=== PATIENT | female | born 1975 | race Caucasian/White ===

== ENCOUNTER 2016-12-02 06:09 | Day surgery (SDC) | payer BC ==
[2016-11-29 09:37] VITALS: BMI 29.7
[2016-12-02] MEDS ORDERED: ceFAZolin SODIUM 1 GM VIAL ONE ×4 (07:31→10:50)
[2016-12-02] MEDS ORDERED: EPINEPHrine 1:1,000 1 MG/1 ML - 30ML VIAL (INJECTION) ONE (07:31)
[2016-12-02] MEDS ORDERED: GENTAMICIN SO4 80 MG/2 ML VIAL ONE ×3 (07:31→10:50)
[2016-12-02] MEDS ORDERED: BACITRACIN 15 GM TUBE TOPICAL OINTMENT ONE (07:31)
[2016-12-02] MEDS ORDERED: MIDAZOLAM HCL 2 MG/2 ML SINGLE DOSE VIAL ONE (07:37)
[2016-12-02] MEDS ORDERED: LIDOCAINE 1% P/F 10 MG/ML VIAL ONE (07:37)
[2016-12-02] MEDS ORDERED: DEXAMETHASONE SOD PHOSPHATE 4 MG/1 ML VIAL ONE (08:02)
[2016-12-02] MEDS ORDERED: PROPOFOL 20 ML ONE ×3 (08:02→13:15)
[2016-12-02] MEDS ORDERED: ROCURONIUM BROMIDE 50 MG/5 ML VIAL ONE (08:02)
[2016-12-02] MEDS ORDERED: ONDANSETRON 4 MG/2 ML VIAL ONE (08:02)
[2016-12-02] MEDS ORDERED: LIDOCAINE HCL/PF 2% SDV 5ML VIAL ONE (08:02)
[2016-12-02] MEDS ORDERED: LIDOCAINE HCL 1%, 10 MG/ML (20ML VIAL) ONE (08:08)
[2016-12-02] MEDS ORDERED: ONDANSETRON 4 MG/2 ML VIAL IVPUSH PRN (08:08)
[2016-12-02] MEDS ORDERED: oxyCODONE HCL 5 MG TABLET PO PRN ×2 (08:08)
[2016-12-02] MEDS ORDERED: PROMETHAZINE HCL 25 MG/1 ML VIAL IVPUSH PRN (08:08)
[2016-12-02] MEDS ORDERED: LACTATED RINGERS SOLUTION 1,000 ML IV SCH (08:15)
[2016-12-02] MEDS ORDERED: HEPARIN NA (PORCINE) 5,000 UNITS/ML 1ML VIAL ONE (08:17)
[2016-12-02] MEDS ORDERED: LIDOCAINE 1%-EPI 1:100,000 30 ML MDV IJ ONE (09:09)
[2016-12-02] MEDS ORDERED: ePHEDrine SULFATE 50 MG/1 ML AMPULE ONE ×2 (09:22→13:26)
[2016-12-02] MEDS ORDERED: BUPIVACAINE HCL/PF 2.5 MG/ML - 30 ML VIAL IJ ONE (09:48)
[2016-12-02] MEDS ORDERED: DESFLURANE GAS 240 ML BOTTLE IH ONE (13:41)
[2016-12-02] MEDS ORDERED: BUPIVACAINE HCL/PF 0.25% (2.5MG/ML) 10 ML VIAL IJ ONE (14:16)
[2016-12-02] MEDS ORDERED: HYDROmorphone HCL/PF 1 MG/ML VIAL (FOR PYXIS CHARGING ONLY) ONE (14:22)
[2016-12-02] MEDS ORDERED: PROMETHAZINE HCL 25 MG/1 ML VIAL ONE (15:50)
--- NOTE | 2016-12-02 17:11 | SURG ---
Surgery Systems Qa Analyst Note Systems Qa Analyst: Dalila Ely PA-C Date of Service: 12/02/16 Diagnosis: breast cancer, breast asymmetry Procedure: bilateral breast reconstruction, bilateral breast implant I was present for the case for the breast reconstruction from 9:30 until 1300. For further detail, please refer to operative report. Visit type - Case Type Case Type: Scheduled Admission - Emergency Emergency Visit: No - New patient This patient is new to me today: Yes Date on this admission: 12/02/16 - Critical Care Critical Care patient: No
[2016-12-02 18:58] VITALS: BP 126/72; PULSE 80; TEMP 97.8
--- NOTE | 2016-12-08 16:46 | PATH ---
Surgical Pathology Report Patient Name: ELVIS LOWE [facility]. Rec. #: [id number] /Age/Gender: 1975 (Age: 41) / F Account: [id number] Location: [facility] AMBULATORY Taken: 12/02/2016 Received: 12/02/2016 Reported: 12/08/2016 Physicians: Carlee Santana M.D. Specimen(s) Received A: LEFT BREAST SKIN AND SCAR B: RIGHT BREAST SKIN AND SCAR Clinical History History of breast cancer, breast asymmetry Final Diagnosis A. SKIN AND SCAR, LEFT BREAST, REVISION: SKIN WITH SCAR. B. SKIN AND SCAR, RIGHT BREAST, REVISION: SKIN WITH SCAR. Electronically Signed Alexandra Richmond M.D. Gross Description A. Received in formalin labeled "left breast skin and scar," is a 5.5 x 3.0 x 0.6 cm aggregate of multiple cody, irregular, unoriented portions of skin with minimal underlying soft tissue. Box Chipper sections are submitted in one cassette. B. Received in formalin labeled "right breast skin and scar," is a 7.5 x 4.5 x 0.8 cm aggregate of multiple cody, irregular, unoriented portions of skin with minimal underlying soft tissue. Box Chipper sections are submitted in one cassette. 12/06/201612/06/2016
--- NOTE | 2017-02-03 11:10 | OP ---
DATE OF OPERATION: 12/02/2016 PREOPERATIVE DIAGNOSIS: Status post bilateral mastectomies with autologous tissue reconstruction with asymmetry and deflated appearance per patient. POSTOPERATIVE DIAGNOSIS: Status post bilateral mastectomies with autologous tissue reconstruction with asymmetry and deflated appearance per patient. PROCEDURE: 1. Bilateral superomedial fat grafting from inner thigh and abdominal donor sites. 2. Revision bilateral reconstructive breasts with skin excision to remove as much pigmented areolar tissue as possible, placement of bilateral breast silicone implants under the flaps, possible placement of acellular dermal matrix. SURGEON: Mateo Santana MD MYSQL DBA: Dalila Ely PA-C ANESTHESIA: General endotracheal anesthesia. SPECIMENS: 1. Left breast skin and scar. 2. Right breast skin and scar. INDICATIONS FOR PROCEDURE: The patient is status post bilateral MAMIE (deep inferior epigastric artery plow and boring machine tender) flaps for her breasts at [facility]. Patient is unhappy with the size and shape of her breasts and states they are deflated and asymmetric. She presents today for breast reconstruction. Consent was obtained. Surgical procedure was reviewed including the risks as well as the recovery period. Alternative of no surgery was discussed with the patient. Risks included, but were not limited to: Infection, bleeding, scarring, need for further surgery, implant failure, implant rupture, pain, flap loss, flap ischemia, persistent asymmetry, blood clot in her leg going to her lung. All her questions were answered, and she agreed to proceed. DESCRIPTION OF PROCEDURE: Patient was taken to the operating room, placed supine on the operating room table. Time-out procedure was performed. Anesthesia induced general endotracheal anesthesia. Prophylactic intravenous antibiotics were provided. TEDs and sequential compression devices were placed on her bilateral lower extremities for deep venous thrombosis prophylaxis. The areas were prepped and draped in the standard sterile manner. Patient had skin grafts over the previous areola, which had failed at the reconstruction of her outside procedure with need of pigmented areola. She had a vertical scar on the left side and none on the right side. Vertical scar on the left was entered. Flap was viable, pedicle was maintained. Flap was raised to create an implant pocket. Similar procedure was performed on the right side with the flap raised to create the implant pocket. Sizers were used and implant size was chosen. No acellular dermal matrix was needed for suspension at this time, this since the tissues appeared firm. Gloves were changed. Utilizing no-touch technique with a Carreon Funnel, breast implants were placed. These were 485 mL cohesive silicone breast implants. These fit the pocket nicely. Wounds were copiously irrigated with Ancef, gentamicin, Bacitracin, triple antibiotic irrigation. Care was taken to maintain the pedicles bilaterally. Flaps appeared to be warm and well perfused bilaterally. Vertical incisions were subsequently closed with 2-0 Vicryl buried sutures. The remaining areolar tissue around the circular skin grafts bilaterally were excised using No. 15 blade and sutured with interrupted intradermal buried 3-0 Monocryl and running 4-0 Monocryl in a subcuticular manner. The remainder of the wounds were closed in this fashion, and patient was sat up to assess for symmetry and had good symmetry. No drain was placed. No dermal matrix was determined to be needed at this time. After wound closure, attention was then turned to the inner thighs, flank, and abdomen for fat graft harvesting. Tumescent was infiltrated through liposuction sites made with No. 15 blade, and the fat was harvested using the Cryptonator fat graft equipment. Fat was washed. Superomedial fat was injected bilaterally with 47 mL of fat injected on the left and 42 mL of fat injected on the right through injection sites created with a No. 15 blade using the fat injection cannula. This provided good symmetry. Fat injection sites were sutured with simple interrupted 5-0 nylon sutures. Dermabond was applied to all wounds with gauze, ABD pads and a surgical bra. Liposuction sites were closed with simple interrupted 5-0 nylon sutures covered with Bacitracin, Telfa, and a small Tegaderm. Counts were correct at the end of the case, and patient was extubated and taken to the recovery room in stable condition postoperatively. MATEO SANTANA M.D. [id number]
--- NOTE | 2017-02-06 11:25 | OP ---
DATE OF OPERATION: 12/02/2016 ADDENDUM Please note that for the procedure, 1500 mL of tumescent was infiltrated in the abdomen, flanks, and inner thighs, and 300 mL of fat was processed with the Revolve and 89 mL of fat were injected into the bilateral superomedial breast. MATEO RIVER M.D. [id number]
== END 2016-12-02 17:25 | disposition home or self-care (01) ==
LOC: FASU 06:09
PROVIDERS: ATTEND Surgery
PROC: 0HRX07Z Replacement of Left Nipple with Autologous Tissue Substitute, Open Approach (ICD-10-PCS; 2016-12-02)
PROC: 0HRW07Z Replacement of Right Nipple with Autologous Tissue Substitute, Open Approach (ICD-10-PCS; 2016-12-02)
PROC: 0HRV07Z Replacement of Bilateral Breast with Autologous Tissue Substitute, Open Approach (ICD-10-PCS; principal; 2016-12-02 09:12)
PROC: 0HUV0JZ Supplement Bilateral Breast with Synthetic Substitute, Open Approach (ICD-10-PCS; 2016-12-02 09:12)
DX: Z90.13 Acquired absence of bilateral breasts and nipples (principal); N65.1 Disproportion of reconstructed breast; T85.613A Breakdown (mechanical) of artificial skin graft and decellularized allodermis, initial encounter; Y83.4 Other reconstructive surgery as the cause of abnormal reaction of the patient, or of later complication, without mention of misadventure at the time of the procedure; Y92.9 Unspecified place or not applicable; L90.5 Scar conditions and fibrosis of skin
CPT/HCPCS: 88302-TC; 94760; J1644

== ENCOUNTER 2016-12-13 11:39 | Day surgery (SDC) | payer BC ==
--- NOTE | 2016-12-13 12:56 | PDOC ---
History of Present Illness - General Chief Complaint: Wound Infection Stated Complaint: WOUND INFECTION Time Seen by Provider: 12/13/16 11:41 History Source: Patient, Significant Other Exam Limitations: No Limitations - History of Present Illness Initial Comments: 12/13/16 12:46 CHIEF COMPLAINT: Drainage from the right breast wound HISTORY OF PRESENT ILLNESS: The status post recent revision of her right breast. She has a history of prior breast cancer with surgery and recently underwent the breast revision procedure by Dr. Clark, plastic surgeon. Today she was sent to the emergency department by her plastic surgeon for progression of the drainage and pain from the right breast wound. REVIEW OF SYSTEMS: no fever, no chills positive right breast pain positive drainage from the wound Past History - Past Medical History Allergies/Adverse Reactions: Allergies Allergy/AdvReac Type Severity Reaction Status Date / Time latex Allergy Hives Verified 12/13/16 11:46 codeine AdvReac Vomiting Verified 12/13/16 11:46 Home Medications: Ambulatory Orders Alprazolam [Xanax] 1 mg PO QID PRN 11/29/16 Lamotrigine [Lamictal] 200 mg PO DAILY 11/29/16 Omeprazole 40 mg PO DAILY 11/29/16 Paroxetine HCl [Paxil] 20 mg PO HS 11/29/16 Clindamycin [Cleocin -] 300 mg PO TID 12/13/16 Doxycycline Hyclate 100 mg PO BID 12/13/16 Anemia: No Asthma: No Cancer: Yes (2012 Right Breast) Cardiac Disorders: No CVA: No COPD: No CHF: No Dementia: No Diabetes: No GI Disorders: No Disorders: No HTN: No Hypercholesterolemia: No Liver Disease: No Seizures: Yes (last seizure 10 yrs ago) Thyroid Disease: No - Surgical History Abdominal Surgery: No Appendectomy: No Cardiac Surgery: No Cholecystectomy: No Lung Surgery: No Neurologic Surgery: No Orthopedic Surgery: No Other Surgical History: 12/13/16 12:58 breast surgery - Psycho/Social/Smoking Cessation Hx Anxiety: Yes Suicidal Ideation: No Smoking History: Never smoked Have you smoked in the past 12 months: No Information on smoking cessation initiated: No Hx Alcohol Use: No Drug/Substance Use Hx: No Substance Use Type: None Hx Substance Use Treatment: No *Physical Exam - Vital Signs Last Vital Signs Temp Pulse Resp BP Pulse Ox 98.6 F 68 20 97/67 99 12/13/16 11:40 12/13/16 11:40 12/13/16 11:40 12/13/16 11:40 12/13/16 11:40 - Physical Exam Comments: 12/13/16 12:58 GENERAL: The patient is awake, alert, and fully oriented, in no acute distress. HEAD: Normal with no signs of trauma. EYES: Pupils equal, round and reactive to light, extraocular movements intact, sclera anicteric, conjunctiva clear. BREASTS: R breast with open wound inferior at 6 o'clock, small white discharge EXTREMITIES: Normal range of motion, no edema. NEUROLOGICAL: Normal speech, normal gait. PSYCH: Normal mood, normal affect. SKIN: Warm, Dry, normal turgor. Medical Decision Making - Medical Decision Making 12/13/16 13:05 Patient is a 41-year-old woman status post right breast revision with a prior history of breast cancer surgery. She comes in now with ongoing drainage and pain from the right breast. She will be going to the OR for debridement and wound care. CBC and chemistry panel sent. Wound culture sent. Patient took her clindamycin at 8:30 am this morning. Next dose to be given IV at 2:30 pm. *DC/Admit/Observation/Transfer Diagnosis at time of Disposition: Breast wound Qualifiers: Encounter type: initial encounter Laterality: right Qualified Code(s): S21.001A - Unspecified open wound of right breast, initial encounter - Discharge Dispostion Condition at time of disposition: Stable Admit: Yes Decision to Admit order Date/Time: 12/13/16 13:07 admitted to OR by Dr. Clark.
[2016-12-13] MEDS ORDERED: ceFAZolin SODIUM 1 GM VIAL ONE (13:05)
[2016-12-13] MEDS ORDERED: GENTAMICIN SO4 80 MG/2 ML VIAL ONE (13:05)
[2016-12-13] MEDS ORDERED: BACITRACIN 15 GM TUBE TOPICAL OINTMENT ONE (13:06)
[2016-12-13] MEDS ORDERED: LIDOCAINE 1%-EPI 1:100,000 30 ML MDV IJ ONE (13:06)
[2016-12-13 13:19] LABS: ALBUMIN 3.3 g/dl (3.5-5.0); ALK PHOS 84 U/L (32-92); ANION GAP 6 (8-16); BILIRUBIN,TOTAL 1.4 mg/dl (0.2-1.0); CO2 27 mmol/L (22-28); CREATININE 0.6 mg/dl (0.6-1.3); GLUCOSE,RANDOM 88 mg/dl (74-106); SGOT/AST 30 U/L (10-42); SGPT/ALT 15 U/L (10-40)
[2016-12-13] MEDS ORDERED: MIDAZOLAM HCL 2 MG/2 ML SINGLE DOSE VIAL ONE (13:25)
[2016-12-13] MEDS ORDERED: PROPOFOL 20 ML ONE (13:57)
[2016-12-13] MEDS ORDERED: LIDOCAINE HCL/PF 2% SDV 5ML VIAL ONE (13:57)
[2016-12-13] MEDS ORDERED: CLINDAMYCIN PHOSPHATE 600 MG/4 ML VIAL ONE (14:23)
[2016-12-13 14:53] LABS: MCH 33.5 pg (25.7-33.7)
[2016-12-13 14:58] LABS: BASOPHIL 0.7 % (0-2.0); EOSINOPHIL 0.8 % (0-4.5); MCHC 35.1 g/dl (32.0-36.0); MEAN CELL VOLUME 95.5 fl (80-96); MEAN PLT VOLUME 7.6 fl (7.5-11.1); NEUTROPHILS 51.7 % (42.8-82.8); PLATELET COUNT 258 K/MM3 (134-434); RDW 13.8 % (11.6-15.6)
[2016-12-13] MEDS ORDERED: ONDANSETRON 4 MG/2 ML VIAL IVPUSH PRN (15:20)
[2016-12-13] MEDS ORDERED: ACETAMINOPHEN 325 MG TABLET (FP) PO PRN (15:20)
[2016-12-13] MEDS ORDERED: BUPIVACAINE HCL/PF 2.5 MG/ML - 30 ML VIAL IJ ONE (15:28)
[2016-12-13] MEDS ORDERED: BUPIVACAINE HCL/PF 0.25% (2.5MG/ML) 10 ML VIAL IJ ONE (15:31)
[2016-12-13] MEDS ORDERED: ALPRAZolam 0.25 MG TABLET PO PRN (16:54)
[2016-12-13] MEDS ORDERED: HYDROmorphone HCL CARPU-JECT 1 MG/1 ML DISP.SYRIN IVPB PRN (16:55)
[2016-12-13] MEDS ORDERED: oxyCODONE HCL 5 MG TABLET PO PRN (16:55)
[2016-12-13] MEDS ORDERED: DOCUSATE SODIUM 100 MG CAPSULE (FP) PO PRN (16:55)
[2016-12-13] MEDS ORDERED: LACTATED RINGERS SOLUTION 1,000 ML IV SCH (17:00)
[2016-12-13] MEDS ORDERED: CLINDAMYCIN 600MG PREMIX IVPB 50 ML IVPB SCH (18:00)
[2016-12-13 18:26] VITALS: BMI 28.5
[2016-12-13] MEDS: DOXYCYCLINE HYCLATE 100 MG CAPSULE PO SCH (18:45)
[2016-12-13] MEDS: oxyCODONE HCL 5 MG TABLET PO PRN ×2 (19:27→22:40)
[2016-12-13] MEDS: ACETAMINOPHEN 325 MG TABLET (FP) PO PRN (22:39)
[2016-12-13] MEDS: ONDANSETRON 4 MG/2 ML VIAL IVPB PRN (22:40)
[2016-12-13] MEDS: CLINDAMYCIN 600MG PREMIX IVPB 50 ML IVPB SCH (22:41)
[2016-12-13 22:55] VITALS: TEMP 98.5
[2016-12-14] MEDS: oxyCODONE HCL 5 MG TABLET PO PRN (03:19)
[2016-12-14] MEDS: ACETAMINOPHEN 325 MG TABLET (FP) PO PRN (03:20)
[2016-12-14] MEDS: CLINDAMYCIN 600MG PREMIX IVPB 50 ML IVPB SCH (06:11)
[2016-12-14 06:51] VITALS: PULSE 95
[2016-12-14] MEDS: DOXYCYCLINE HYCLATE 100 MG CAPSULE PO SCH (09:10)
[2016-12-14] MEDS: ONDANSETRON 4 MG/2 ML VIAL IVPB PRN (09:18)
--- NOTE | 2016-12-14 10:55 | PN ---
Progress Note (short form) - Note Progress Note: PO #1 R Breast. Pain score 6/10 Complains of N/V. Previous Hx of POVN. She is on Zofran prn. Continue with zofran for POVN
[2016-12-14 11:45] VITALS: BP 100/58
--- NOTE | 2016-12-15 16:06 | PATH ---
Surgical Pathology Report Patient Name: ELVIS LOWE Med. Rec. #: [id number] /Age/Gender: 1975 (Age: 41) / F Account: [id number] Location: [facility] MED-[facility]G Taken: 12/14/2016 Received: 12/14/2016 Reported: 12/15/2016 Physicians: Carlee Santana M.D. Specimen(s) Received A: RIGHT BREAST IMPLANT (GROSS ONLY) B: RIGHT BREAST FLAP SKIN /TISSUE Clinical History Right breast wound infection Final Diagnosis A. BREAST IMPLANT, RIGHT, REMOVAL: BREAST IMPLANT (GROSS EXAM). B. SKIN AND SOFT TISSUE, RIGHT BREAST FLAP, DEBRIDEMENT: ULCERATED SKIN AND UNDERLYING SOFT TISSUE WITH ACUTE AND CHRONIC INFLAMMATION AND INFLAMED GRANULATION TISSUE. Electronically Signed Dedrick Meléndez M.D. Gross Description A. Received fresh labeled "right breast implant" is a 13 cm in diameter x 4 cm in depth clear, rubbery, disc-shaped object, consistent with a breast implant. No soft tissue is present. No sections are submitted, gross only. B. Received in formalin labeled "right breast flap/skin tissue" is an 8.5 x 7.0 x 1.0 cm aggregate of multiple cody-yellow, irregular portions of skin and soft tissue fragments. Aluminizer sections are submitted in one cassette. 12/14/201612/14/2016
--- NOTE | 2017-02-03 12:32 | OP ---
DATE OF OPERATION: 12/13/2016 PREOPERATIVE DIAGNOSIS: Right breast implant infection with implant exposure and wound drainage. POSTOPERATIVE DIAGNOSIS: Right breast implant infection with implant exposure and wound drainage. PROCEDURE: 1. Right breast implant removal. 2. Debridement of skin and subcutaneous tissue for a total of 46 sq cm. 3. Complex repair of right breast for 200 sq cm (20 cm x 10 cm). SURGEON: Mateo Santana MD ASSISTANTS: None. ANESTHESIA: General endotracheal anesthesia. SPECIMENS: Right breast implant, gross only, right breast flap, skin, and tissue. INDICATIONS FOR PROCEDURE: The patient is status post bilateral breast reconstruction. She developed wound drainage on the right side with implant exposure and was taken to the operating room today for implant removal as well as skin debridement and closure. Significant discussion preoperatively was reviewed with the patient and her . We discussed that since the implant was exposed, that it was most prudent to remove the implant, debride skin back to viable tissue and close down the cavity. We also discussed that she would likely have a drain. We discussed it would take some time to perform a symmetry procedure, and we would need to wait some time before placing another implant. All her questions were answered. Risks of the procedure included, but were not limited to: Infection, bleeding, scarring, need for further surgery. All her questions were answered. DESCRIPTION OF PROCEDURE: Patient was taken to the operating room, placed supine on the operating room table. Anesthesia induced general endotracheal anesthesia. TEDs and sequential compression devices were placed on her bilateral lower extremities for deep venous thrombosis prophylaxis. Time-out procedure was performed. Surgical right breast was isolated from the left breast and prepped and draped in the standard sterile manner. The implant was exposed inferiorly. Wound was opened. Implant was removed and sent for gross pathology. Wound was sharply debrided of skin and subcutaneous tissue for 46 sq cm back to bleeding tissue. There was some ischemic-appearing subcutaneous tissue, which was sent for pathology as well as wound culture. Wound was copiously irrigated with pulse lavage irrigation comprising Ancef, gentamicin, and Bacitracin. There was no further infection. No purulent drainage. Wound was closed in a complex manner to close down the cavity with multiple deep sutures, skin edge undermining to best close the wound, dog-ear excision and multi-layered repair with buried deep 2-0 Vicryl sutures, interrupted intradermal buried 3-0 Monocryl loosely as well as simple interrupted 4-0 nylon and the sutures loosely applied. Bacitracin, Xeroform, 4x4 gauze, and ABD pads were placed. Please note prior to wound closure that a No. 15 Michael drain was placed through the lateral inframammary area and sutured with 3-0 nylon sutures. In this manner, complex repair was performed for 200 sq cm (20 cm x 10 cm) requiring skin edge undermining, skin debridement, multi-layered repair. MATEO SANTANA M.D. [id number]
== END 2016-12-14 11:20 | disposition home or self-care (01) ==
LOC: FER 11:39 → FASUSAT 13:09 → FM/S 18:03 → FASUSAT 12-14 11:20
PROVIDERS: ATTEND Surgery
PROC: 0JB60ZZ Excision of Chest Subcutaneous Tissue and Fascia, Open Approach (ICD-10-PCS; 2016-12-13)
PROC: 0HQTXZZ (ICD-10-PCS; 2016-12-13)
PROC: 0HPT0JZ Removal of Synthetic Substitute from Right Breast, Open Approach (ICD-10-PCS; principal; 2016-12-13 14:37)
DX: T85.79XA Infection and inflammatory reaction due to other internal prosthetic devices, implants and grafts, initial encounter (principal); T85.49XA Other mechanical complication of breast prosthesis and implant, initial encounter; Y83.4 Other reconstructive surgery as the cause of abnormal reaction of the patient, or of later complication, without mention of misadventure at the time of the procedure; Y92.9 Unspecified place or not applicable
CPT/HCPCS: 36415; 80053; 85025; 87070; 87075; 87186; 87205; 88300-TC; 88304-TC; 94760; 99282-25

== ENCOUNTER 2017-04-14 06:27 | Day surgery (SDC) | payer BC ==
[2017-03-21 13:40] VITALS: BMI 31.8
[2017-04-14] MEDS ORDERED: ceFAZolin SODIUM 1 GM VIAL ONE ×4 (07:06→11:10)
[2017-04-14] MEDS ORDERED: GENTAMICIN SO4 80 MG/2 ML VIAL ONE ×3 (07:06→11:10)
[2017-04-14] MEDS ORDERED: LIDOCAINE 1%/EPI 1:100000 (20 ML MULTI DOSE VIAL) ONE (07:07)
[2017-04-14] MEDS ORDERED: BUPIVACAINE HCL/PF 2.5 MG/ML - 30 ML VIAL IJ ONE (07:51)
[2017-04-14] MEDS ORDERED: SUCCINYLCHOLINE CHLORIDE 200 MG/10 ML VIAL ONE (08:01)
[2017-04-14] MEDS ORDERED: MIDAZOLAM HCL 2 MG/2 ML SINGLE DOSE VIAL ONE (08:01)
[2017-04-14] MEDS ORDERED: ROCURONIUM BROMIDE 50 MG/5 ML VIAL ONE (08:01)
[2017-04-14] MEDS ORDERED: PROPOFOL 20 ML ONE ×8 (08:01→14:24)
[2017-04-14] MEDS ORDERED: ONDANSETRON 4 MG/2 ML VIAL ONE (08:04)
[2017-04-14] MEDS ORDERED: DEXAMETHASONE SOD PHOSPHATE 4 MG/1 ML VIAL ONE (08:04)
[2017-04-14] MEDS ORDERED: LIDOCAINE HCL/PF 2% SDV 5ML VIAL ONE (08:04)
[2017-04-14] MEDS ORDERED: LIDOCAINE HCL 2% JELLY (5 ML/TUBE) ONE (08:04)
[2017-04-14] MEDS ORDERED: CEFEPIME HCL 2 GM VIAL (RESTRICTED TO ID) IVPB ONE ×2 (08:30→15:13)
[2017-04-14] MEDS ORDERED: LIDOCAINE HCL 1%, 10 MG/ML (20ML VIAL) ONE (09:25)
[2017-04-14] MEDS ORDERED: EPINEPHrine 1:1,000 1 MG/1 ML - 30ML VIAL (INJECTION) ONE (09:25)
[2017-04-14] MEDS ORDERED: LIDOCAINE 1%/EPI 1:100000 (50 ML MULTI DOSE VIAL) INF ONE (09:30)
[2017-04-14] MEDS ORDERED: ePHEDrine SULFATE 50 MG/1 ML AMPULE ONE (10:00)
[2017-04-14] MEDS ORDERED: DESFLURANE GAS 240 ML BOTTLE IH ONE (12:39)
[2017-04-14] MEDS ORDERED: BACITRACIN 15 GM TUBE TOPICAL OINTMENT ONE (13:13)
[2017-04-14] MEDS ORDERED: HYDROmorphone HCL CARPU-JECT 1 MG/1 ML DISP.SYRIN IVPUSH PRN (15:12)
[2017-04-14] MEDS ORDERED: ONDANSETRON 4 MG/2 ML VIAL IVPUSH PRN (15:12)
[2017-04-14] MEDS ORDERED: oxyCODONE HCL 5 MG TABLET PO PRN ×2 (15:12)
[2017-04-14] MEDS ORDERED: PROMETHAZINE HCL 25 MG/1 ML VIAL IVPUSH PRN (15:12)
[2017-04-14] MEDS ORDERED: LACTATED RINGERS SOLUTION 1,000 ML IV SCH (15:15)
[2017-04-14] MEDS ORDERED: BUPIVACAINE HCL/PF 0.25% (2.5MG/ML) 10 ML VIAL IJ ONE (15:16)
[2017-04-14 17:01] VITALS: TEMP 97.6
[2017-04-14] MEDS ORDERED: oxyCODONE HCL 5 MG TABLET ONE ×2 (17:04→17:25)
[2017-04-14 18:09] VITALS: BP 101/68
[2017-04-14 18:15] VITALS: PULSE 102
--- NOTE | 2017-04-19 10:38 | PATH ---
Surgical Pathology Report Patient Name: ELVIS LOWE [facility]. Rec. #: [id number] /Age/Gender: 1975 (Age: 41) / F Account: [id number] Location: [facility] AMB[facility] Taken: 04/17/2017 Received: 04/17/2017 Reported: 04/19/2017 Physicians: Carlee Santana M.D. Specimen(s) Received A: LEFT BREAST IMPLANT B: LEFT BREAST SKIN & SCAR C: RIGHT BREAST SKIN & SCAR Clinical History Breast cancer Final Diagnosis A. LEFT BREAST, IMPLANT, REMOVAL: BREAST IMPLANT, GROSS DIAGNOSIS. B. LEFT BREAST, SKIN AND SCAR, EXCISION: PORTION OF SKIN, MILD FIBROSIS AND FOCAL GIANT CELL REACTION CONSISTENT WITH SCAR. C. RIGHT BREAST, SKIN AND SCAR, EXCISION: PORTION OF SKIN WITH MILD FIBROSIS AND FOCAL HEMORRHAGE CONSISTENT WITH SCAR. Electronically Signed Merly Healy M.D. Gross Description A. Received fresh labeled "left breast implant," is a 13 cm in diameter x 4 cm in depth clear, rubbery breast implant. No soft tissue is present. No sections are submitted, gross only. B. Received in formalin labeled "left breast skin and scar," is a 7.5 x 3.5 cm cody, elliptical, unoriented skin shave with a 5 cm in length central, linear defect. Also received within the same container is a 1.5 x 0.8 cm cody, unremarkable skin shave. No masses are identified. Canteen Operator sections are submitted in one cassette. C. Received in formalin labeled "right breast skin and scar are 4 cody, irregular, unoriented portions of skin ranging from 1.2 x 0.5 cm to 5.3 x 0.8 cm. The largest portion displays a central, linear, well-healed scar. Canteen Operator sections are submitted in one cassette. /04/17/201704/17/2017
--- NOTE | 2017-04-25 09:02 | OP ---
DATE OF OPERATION: 04/14/2017 PREOPERATIVE DIAGNOSIS: Status post bilateral mastectomy with previous reconstruction and loss of right breast implant with asymmetry and deformity of reconstructed breast. POSTOPERATIVE DIAGNOSIS: Status post bilateral mastectomy with previous reconstruction and loss of right breast implant with asymmetry and deformity of reconstructed breast. SPECIMENS: 1. Left breast implant. 2. Left breast skin and scar. 3. Right breast skin and scar. SURGEON: Carlee Santana MD ASSISTANTS: None. ESTIMATED BLOOD LOSS: Minimal. DISPOSITION: To recovery room in stable condition postoperatively. IMPLANTS AND PROSTHETIC DEVICES: Allergan Natrelle Inspira implants 485 mL cohesive implants placed bilaterally (left side reference number SCF-485, serial number [id number]; right SCF-485, serial number [id number]). PROCEDURE: 1. Fat grafting, bilateral superomedial grafts. 2. Bilateral revision of reconstructed breasts with raising of left inframammary fold with suture suspension to the rib periosteum. 3. Removal of left breast implant and placement of bilateral breast implants. 4. Bilateral breast capsulotomies. INDICATION FOR PROCEDURE: The patient is status post autologous flap reconstruction, was unhappy with the shape of her breasts. Patient had flap perfusion complications per her report with need for debridement and skin grafting after her flap surgery at [facility]. In November, patient presented for implant-based breast reconstruction. Postoperatively, patient had a right implant infection requiring implant removal and complex closure. She presents today to surgery for revision of her bilateral reconstructed breasts, fat grafting to the superomedial area. Patient complains of contour deformities, bilateral superomedial area, bilateral breast scar work, resuspension of the left inframammary fold if possible, and placement of new breast implants. All her questions were answered. She agreed to proceed. Patient was marked in the preoperative area with her present. Risks of the procedure were reviewed which include, but are not limited to: Infection, bleeding, scarring, need for further surgery, pain, skin loss, wound healing problems, failure of , implant loss, blood clots in her leg going to the lung, ALCL, need for implant screening, pain, persistent asymmetry, inability to raise the left inframammary fold, poor cosmetic result. All of her questions were answered, and she agreed to proceed. We discussed she is at a high risk of wound complications given her previous wound healing problems. She agreed to proceed. All of her and her 's questions were answered. DESCRIPTION OF PROCEDURE: Patient was taken to the operating room and placed supine on the operating room table. Timeout procedure was performed. Anesthesia induced general endotracheal anesthesia. Prophylactic intravenous antibiotics were provided. TEDs and sequential compression devices were placed on her bilateral lower extremities for deep venous thrombosis prophylaxis. Chest, abdomen, flanks, and bilateral inner thighs were prepped and draped in standard sterile manner. Attention was first turned to the right breast. Scar was well healed, but the breast was contracted, and the right inframammary fold was higher than the left. Areas to be incised were injected with 1% lidocaine with epinephrine. Incision was performed with a number-15 blade, which was taken down with electrocautery. There was significant scar tissue, and subpectoral pocket was created with electrocautery. Headlight was utilized. Hemostasis was achieved. Implant sizer was utilized after changing gloves and irrigating with Ancef, bacitracin, gentamicin antibiotic irrigation, and the 485-mL implant which was present on the left side was determined to be a good size. The implant was removed. Gloves were changed. No-touch technique was used. Carreon funnel was utilized, and on the right side, an Allergan Natrelle Inspira 485-mL cohesive implant, reference number SCF-485, serial number [id number], was placed. Wound was irrigated, and wound was temporarily closed. Attention was then turned to the left side where the vertical scar was excised with a number-15 blade, passed off the field, sent for pathology, and incision was deepened with electrocautery. The implant was removed. The implant had several folds. A new implant would be re-implanted. Implant was passed off the field and sent for pathology. The wound was irrigated. Left breast had significant capsular contracture. Left breast implant pocket had significant capsular contracture and capsulotomy in a checkered pattern was performed superomedially, and care was taken to avoid the overlying skin perfusion. The inframammary fold on the left was much lower than the right, and the inframammary fold was re-suspended with 0 PDS sutures into the rib periosteum as well as several 2-0 PDS sutures. Several of these sutures were used. Area was injected with 0.25% Marcaine plain for pain control at the conclusion of the procedure, and the inframammary fold was suspended in this manner. Acellular dermal matrix was not placed at this time due to concerns of perfusion given her previous perfusion problems postoperatively and wound infections in an effort to decrease the number of foreign bodies as well as the good suspension achieved to the rib periosteum with sutures. A new implant was used due to several folds of the old implant, and left breast implant 485 mL cohesive implant was placed (reference number SCF-485, serial number [id number]), no-touch technique. Ancef, bacitracin, and gentamicin irrigation were used, and the implant was placed. Wound was temporarily closed with susie. The patient was sat up to assess for symmetry. Patient had more capsular contracture and scarring on the right side and would require a capsulotomy on the right. Arms were adequately padded with Kerlix. Patient was replaced supine, and wounds were opened. Right implant was removed and placed in Ancef, bacitracin, and gentamicin irrigation, and capsulotomy was performed on the right superiorly, medially as well as laterally and inferiorly. Aggressive capsulotomy was performed, and attempt was made to preserve the underlying perfusion and tissues. Capsulotomy was performed with electrocautery. Hemostasis was achieved, wound was irrigated with antibiotics, Carreon funnel was utilized, and implant was replaced and good symmetry was achieved. Wounds were closed bilaterally with 2-0 Vicryl buried superficial fascial sutures, interrupted intradermal buried 3-0 Monocryl, and 4-0 Monocryl sutures in a subcuticular manner. The wounds were reinforced with simple interrupted 4-0 Prolene and 3-0 Prolene sutures. Dermabond, 4 x 4 gauze, ABD pads were placed. No drains were utilized. Abdomen, flanks, inner thighs were prepped and draped in a standard sterile manner. MicroAire liposuction utilizing number 4 and 5-mm cannulas was used. Incisions were made in the bilateral groin area. Tumescent of approximately mL was infiltrated in the areas, and Revolve fat grafting canister was utilized. Fat was harvested. Approximately 115 to 120 mL fat was harvested and appeared to be good quality. Liposuction sites were closed with 5-0 nylon sutures in simple interrupted manner and covered with bacitracin, Telfa, and Tegaderm. Number-15 blade was used to make an incision, bilateral medial breast area and fat injection cannula was used to inject fat for the cleavage in the contour deformities and 45 mL of fat was injected in the left and 57 mL of fat injected in the right in multiple planes and small aliquots at each injection. Fat grafting injection sites were closed with simple interrupted 5-0 nylon. Dermabond was placed, and 4 x 4 gauze, ABD pads, and surgical bra were applied. Sponge counts were correct at the end of the case, and patient was extubated and taken to the recovery room in stable condition postoperatively. Estimated blood loss was minimal. Lili [id number]
== END 2017-04-14 17:50 | disposition home or self-care (01) ==
LOC: FASU 06:27
PROVIDERS: ATTEND Surgery
PROC: 0HWT0JZ Revision of Synthetic Substitute in Right Breast, Open Approach (ICD-10-PCS; 2017-04-14)
PROC: 0HRV07Z Replacement of Bilateral Breast with Autologous Tissue Substitute, Open Approach (ICD-10-PCS; 2017-04-14)
PROC: 0HNV0ZZ Release Bilateral Breast, Open Approach (ICD-10-PCS; 2017-04-14)
PROC: 0HWU0JZ Revision of Synthetic Substitute in Left Breast, Open Approach (ICD-10-PCS; principal; 2017-04-14 09:24)
DX: Z85.3 Personal history of malignant neoplasm of breast (principal); Z90.13 Acquired absence of bilateral breasts and nipples; N65.0 Deformity of reconstructed breast; N65.1 Disproportion of reconstructed breast; L90.5 Scar conditions and fibrosis of skin
CPT/HCPCS: 88300-TC; 88302-TC; 94760